=== PATIENT | male | born 1985 | race Caucasian/White ===

== ENCOUNTER 2024-01-20 10:27 | Emergency (ER) | payer OTHER ==
[~2024-01-20] VITALS: Ht 177.8 cm; Wt 81.6 kg
[~2024-01-20 10:27] MED LIST: ATARAX,VISTARIL50 MG PO; KROGER NIC21 MG/24 H T; ONDANSETRON HYDR4 M1 PO; Robaxin PO; THERA TABS1 TAB PO; VITAMIN B-11 TAB PO
== END 2024-01-20 12:44 | disposition home or self-care (01) ==
LOC: ED 10:27
DX: S86.911A Strain of unspecified muscle(s) and tendon(s) at lower leg level, right leg, initial encounter (principal); X50.1XXA Overexertion from prolonged static or awkward postures, initial encounter; Y93.39 Activity, other involving climbing, rappelling and jumping off; Y92.009 Unspecified place in unspecified non-institutional (private) residence as the place of occurrence of the external cause; Y99.0 Civilian activity done for income or pay